=== PATIENT | male | born 1930 | race Caucasian/White ===

== ENCOUNTER → 2016-08-27 | Outpatient (CLI) | payer MEDICARE ==
[2016-08-27 10:58] LABS: ALBUMIN SERUM 3.5 g/dL (3.5-5.0); BILIRUBIN,TOTAL 1.1 mg/dL (0.2-2.0); BUN/CREATININE RATIO 37.22; CALCIUM SERUM 8.9 mg/dL (8.4-10.2); CREATININE SERUM 1.8 mg/dL (0.6-1.4); GLOM FILT RATE Estimated 38.1 mL/min (>60); PROTEIN TOTAL SERUM 6.3 g/dL (6.0-8.3)
== END | disposition home or self-care (01) ==
LOC: CNNH 10:16
PROVIDERS: Internal Medicine Geriatric Medicine
DX: I50.9 Heart failure, unspecified (principal); E11.9 Type 2 diabetes mellitus without complications
CPT/HCPCS: 80053; 83036; 84443